=== PATIENT | female | born 1955 | race American Indian/Alaskan Native ===

== ENCOUNTER 2018-02-20 06:07 | Day surgery (SDC) | payer OTHER ==
[2018-02-19 16:35] VITALS: BMI 29.0
--- NOTE | 2018-02-20 07:48 | CP.SDSHP ---
Same Day Surgery H & P - History Proposed Procedure: Lumbar facet block injection Pre-Op Diagnosis: Lumbar spondylosis - Previous Medical/Surgical History Cardiac: Hypertension Endocrine/Metabolic: Diabetes Pain: 6.Severe Pain Previous Surgical History: Lumbar laminotomy and fusion, lumbar laminotomy, L knee arthroscopy, R foot surgery, cholecystectomy - Allergies Allergies: Allergies latex Allergy (Verified 02/19/18 16:37) SHORTNESS OF BREATH compazine Adverse Reaction (Uncoded 02/19/18 16:37) SHORTNESS OF BREATH psychotic - Current Medications Current Medications: Metformin, pravastatin, ASA 81mg, Micardis - Physical Exam General Appearance: NAD Vital Signs: Vital Signs 02/20/18 06:40 Temperature 98.3 F Pulse Rate 72 Respiratory 18 Rate Blood Pressure 112/73 O2 Sat by Pulse 98 Oximetry Mental Status: Alert & Oriented x3 Neuro: WNL Heart: WNL Lungs: WNL GI: WNL - {Optional Preform as Required} Abdomen: WNL Integument: WNL Ortho: WNL ENT: WNL Other Pertinent Findings: Lumbar: Lumbar incision well healed, R paraspinal tenderness, neg SLR, diminished LLE sensation - Impression Impression: Patient is a 62 y/o female who presents for elective lumbar fact block injection. Risks/benefits/alternatives were explained to patient who understands and agrees to proceed with above. Pt. Evaluated Today:Candidate for Anesthesia & Procedure: Yes - Date & Time Date: 02/20/18 Time: 07:51 Short Stay Discharge - Short Stay Discharge Admitting Diagnosis/Reason for Visit: M43.16 Disposition: HOME/ ROUTINE
[2018-02-20] MEDS ORDERED: Lactated Ringer's 1,000 ML IV ONE (08:00)
[2018-02-20] MEDS ORDERED: Bupivacaine HCl 0.25% PF (30 ml) Inj ONE (08:23)
[2018-02-20] MEDS ORDERED: Iohexol 300 10 ML ONE (08:23)
[2018-02-20] MEDS ORDERED: MethylPREDNISolone Depo 40 mg/ml Inj ONE (08:23)
[2018-02-20] MEDS ORDERED: Lidocaine 1% Inj (20ml) ONE (08:24)
[2018-02-20] MEDS ORDERED: Midazolam 2 MG/2 ML VIAL ONE (09:10)
--- NOTE | 2018-02-20 10:17 | CARD ---
APPROVED REPORT Date of service: 02/20/2018 EKG Measurement Heart [id number] <Conclusion> Sinus bradycardia Otherwise normal ECG
[2018-02-20 11:31] VITALS: O2SAT 99
[2018-02-20 12:43] VITALS: BP 112/63; PULSE 80; RESP 14; TEMP 97
--- NOTE | 2018-02-20 14:32 | RAD ---
Date of service: 02/20/2018 PROCEDURE: Fluoroscopy up to 1 hr. HISTORY: PAIN MANAGEMENT COMPARISON: None TECHNIQUE: Standard protocol for this study/examination. FINDINGS: Total fluoroscopic time (continuous mode) utilized during the procedure 60.2 seconds. Total exam DLP: 20.63 (mGy). IMPRESSION: Less than 1 hr fluoroscopic assistance provided during performance of the procedure.
--- NOTE | 2018-02-21 00:35 | OP ---
PROCEDURE DATE: 02/20/2018 PREOPERATIVE DIAGNOSIS: Failed back syndrome, facet hypertrophy. POSTOPERATIVE DIAGNOSIS: Failed back syndrome, facet hypertrophy. PROCEDURES: L4 and L5 median nerve branch block and also L5 and bilateral SI joint injection. Fluoroscopy has been used. Omnipaque radiography. SURGEON: Robbie Lopez MD DESCRIPTION OF PROCEDURE: The patient was brought to the operating room, placed in a prone position. The patient was given mild sedation with fentanyl and Versed. Back of the lumbar area thoroughly prepped and draped in standard sterile manner. At this point, the fluoroscopy has been brought in. Anatomy has been identified. Lidocaine with epinephrine has been injected corresponding to the median nerve at L4 and L5 to attack the facet of L5. Initially, a needle has been inserted with a spinal needle. With the help of fluoroscopy, its position has been confirmed. At this point, the Marcaine with Depo-Medrol has been injected in this area, 2 mL. It has been done at 4 points both on right side and the left side to cover the facet of L5, both L4 and L5 median nerve branch has been blocked. Similarly, later the needles have been removed and another set of needles have been placed on the SI joint on both sides. The Omnipaque has been injected and the spread was noted to the joint. Marcaine with Depo-Medrol injected into this area and the patient tolerated the procedure. After procedure, mobilized to the recovery room. Robbie Lopez MD
== END 2018-02-20 13:15 | disposition home or self-care (01) ==
LOC: H.OPSURG 06:07
PROVIDERS: ATTEND Neurological Surgery
DX: M47.816 Spondylosis without myelopathy or radiculopathy, lumbar region (principal); E11.9 Type 2 diabetes mellitus without complications; E78.5 Hyperlipidemia, unspecified; I10 Essential (primary) hypertension; Z79.82 Long term (current) use of aspirin; Z79.84 Long term (current) use of oral hypoglycemic drugs; Z79.899 Other long term (current) drug therapy; Z90.49 Acquired absence of other specified parts of digestive tract
CPT/HCPCS: 20552; 64520; 82948; 93005; J1030; J2250; J2405; J3010; J7120; Q9967